=== PATIENT | female | born 1985 | race Caucasian/White ===

== ENCOUNTER 2018-05-02 08:28 | Emergency (ER) | payer BC, MEDICAID ==
[~2018-05-02] VITALS: Ht 154.9 cm; Wt 59.0 kg
[2018-05-02 08:36] VITALS: BP_SYST 97
--- NOTE | 2018-05-02 08:36 | NUR ---
Patient to ER bed 4 to gown for evaluation. Side rails up. Report given to Kenney.
--- NOTE | 2018-05-02 08:53 | NUR ---
Report switched to Fred.
--- NOTE | 2018-05-02 08:59 | NUR ---
Patient reports scant vaginal bleeding since last night. She has mild pelvic cramping which has been ongoing since the begening of her .
[2018-05-02 09:25] LABS: BASOPHILS # (AUTO) 0.1 K/uL (0.0-0.2); BASOPHILS % (AUTO) 1.1 % (0.0-2.0); EOSINOPHILS # (AUTO) 0.1 K/uL (0.0-0.4); EOSINOPHILS % (AUTO) 0.9 % (0.0-4.0); HEMATOCRIT 37.4 % (36-48); HEMOGLOBIN 12.8 g/dL (12.0-16.0); LYMPHOCYTES % (AUTO) 32.8 % (20.5-51.5); MEAN CORPUSCULAR HEMOGLOBIN 30 pg (27-31); MEAN CORPUSCULAR HGB CONC 34 % (32-36); MEAN CORPUSCULAR VOLUME 87 fL (79.0-98.0); MONOCYTES # (AUTO) 0.4 K/uL (0.0-1.0); MONOCYTES % (AUTO) 5.9 % (1.7-9.3); NEUTROPHILS # (AUTO) 3.5 K/uL (1.8-7.7); NEUTROPHILS % (AUTO) 59.3 % (40.0-70.0); PLATELET COUNT (AUTO) 234 K/uL (130-430); RED BLOOD CELL COUNT(AUTO) 4.31 MIL/uL (4.2-6.2); RED CELL DISTRIBUTION WIDTH 13.2 % (9.0-15.0); WHITE BLOOD COUNT (AUTO) 6.1 K/uL (4.8-10.8)
--- NOTE | 2018-05-02 10:09 | NUR ---
Pt on stable condiition, VS WNL
--- NOTE | 2018-05-02 10:35 | NUR ---
Patient given written and verbal discharge instructions and verbalizes understanding. ER MD discussed with patient the results and treatment provided. Patient in stable condition. ID arm band removed. No Rx given. Patient educated on pain management and to follow up with PMD. Pain Scale 0. Opportunity for questions provided and answered.
[2018-05-02 10:37] VITALS: BP_SYST 100
== END 2018-05-02 10:37 | disposition home or self-care (01) ==
LOC: SED 08:28
DX: O20.0 Threatened abortion (principal); R03.0 Elevated blood-pressure reading, without diagnosis of hypertension; Z3A.01 Less than 8 weeks gestation of pregnancy; Z98.84 Bariatric surgery status
CPT/HCPCS: 36415; 76801; 76817; 81025; 84702-TC; 85025; 86900; 86901; 99285

== ENCOUNTER 2018-12-08 11:05 | Inpatient (IN) | payer BC, MEDICAID ==
[~2018-12-08] VITALS: Ht 154.9 cm; Wt 72.1 kg
[2018-12-08] MEDS ORDERED: LR 1,000 ML IV ONE (11:43)
[2018-12-08] MEDS ORDERED: LR 1,000 ML IV SCH (11:43)
[2018-12-08] MEDS ORDERED: OXYTOCIN/0.9 % SODIUM CHLORIDE 1,000 ML IV SCH (11:43)
[2018-12-08] MEDS ORDERED: NALBUPHINE HCL 10 MG/ML AMP IVP PRN (11:45)
[2018-12-08 12:11] LABS: BASOPHILS % (AUTO) 0.4 % (0.0-2.0); EOSINOPHILS # (AUTO) 0.1 K/uL (0.0-0.4); EOSINOPHILS % (AUTO) 0.6 % (0.0-4.0); HEMATOCRIT 34.9 % (36-48); HEMOGLOBIN 11.7 g/dL (12.0-16.0); LYMPHOCYTES # (AUTO) 1.7 K/uL (1.0-5.5); LYMPHOCYTES % (AUTO) 16.3 % (20.5-51.5); MEAN CORPUSCULAR HEMOGLOBIN 30 pg (27-31); MEAN CORPUSCULAR HGB CONC 33 % (32-36); MEAN CORPUSCULAR VOLUME 90 fL (79.0-98.0); MONOCYTES # (AUTO) 0.7 K/uL (0.0-1.0); MONOCYTES % (AUTO) 6.8 % (1.7-9.3); NEUTROPHILS # (AUTO) 7.8 K/uL (1.8-7.7); NEUTROPHILS % (AUTO) 75.9 % (40.0-70.0); PLATELET COUNT (AUTO) 234 K/uL (130-430); RED CELL DISTRIBUTION WIDTH 13.1 % (9.0-15.0); WHITE BLOOD COUNT (AUTO) 10.3 K/uL (4.8-10.8)
[2018-12-08] MEDS ORDERED: ROPIVACAINE 0.2% 100 ML ONE (12:15)
[2018-12-08] MEDS ORDERED: fentaNYL CITRATE/PF 100 MCG/2 ML AMP ONE ×2 (12:15→12:16)
[2018-12-08] MEDS ORDERED: LR 500 ML IV ONE (13:16)
[2018-12-08] MEDS ORDERED: ePHEDrine sulfate 50 MG/ML VIAL IVP PRN (13:30)
[2018-12-08] MEDS ORDERED: fentaNYL CITRATE/PF 100 MCG/2 ML AMP EP ONE (13:30)
[2018-12-08] MEDS ORDERED: FENT2mCg/mL-ROPIVA0.2%/NS EPID 150 ML EP SCH (13:30)
[2018-12-08] MEDS ORDERED: OXYTOCIN/0.9 % SODIUM CHLORIDE 1,000 ML IV ONE (20:03)
[2018-12-08] MEDS ORDERED: WITCH HAZEL LEAF 1 MED.PAD MED.PAD TP PRN (20:15)
[2018-12-08] MEDS ORDERED: DOCUSATE SODIUM 100 MG CAPSULE PO PRN (20:15)
[2018-12-08] MEDS ORDERED: SENNOSIDES/DOCUSATE SODIUM 1 TAB TABLET(SENOKOT-S) PO PRN (20:15)
[2018-12-08] MEDS ORDERED: LANOLIN 7 GM OINT. TP PRN (20:15)
[2018-12-08] MEDS ORDERED: DERMOPLAST SPRAY TP PRN (20:15)
[2018-12-08] MEDS ORDERED: METHYLERGONOVINE MALEATE 0.2 MG TABLET PO PRN (20:15)
[2018-12-08] MEDS ORDERED: TEMAZEPAM 15 MG CAPSULE PO PRN (21:00)
[2018-12-09] MEDS: IBUPROFEN 600 MG TABLET PO SCH ×4 (05:54→17:58)
[2018-12-10] MEDS: IBUPROFEN 600 MG TABLET PO SCH ×2 (01:18→05:51)
[2018-12-10] MEDS ORDERED: OXYTOCIN/0.9 % SODIUM CHLORIDE 20 UNITS/1,000 ML BAG IV ONE (08:30)
[2018-12-10] MEDS ORDERED: ROPIVACAINE 40 MG/20 ML AMP EP ONE (08:34)
[2018-12-10] MEDS ORDERED: MINERAL OIL 30 ML UDC PO ONE (08:35)
[2018-12-10] MEDS ORDERED: LIDOCAINE PF 1% 30ML(POUR BTL) INJ ONE (08:35)
== END 2018-12-10 11:30 | disposition home or self-care (01) | DRG 807 ==
LOC: SPU 11:05
PROVIDERS: ADMIT Specialist; ATTEND Specialist
PROC: 10E0XZZ Delivery of Products of Conception, External Approach (ICD-10-PCS; principal; 2018-12-08)
PROC: 3E0R3BZ Introduction of Anesthetic Agent into Spinal Canal, Percutaneous Approach (ICD-10-PCS; 2018-12-08)
PROC: 00HU33Z Insertion of Infusion Device into Spinal Canal, Percutaneous Approach (ICD-10-PCS; 2018-12-08)
DX: O32.6XX0 Maternal care for compound presentation, not applicable or unspecified (principal); Z37.0 Single live birth; Z3A.38 38 weeks gestation of pregnancy; Z87.891 Personal history of nicotine dependence
CPT/HCPCS: 36415; 85018-TC; 85025; 86592; 86886; 86900; 86901; J2001; J2590; J2795; J3010

== ENCOUNTER 2019-01-16 13:45 | Emergency (ER) | payer BC, MEDICAID ==
--- NOTE | 2019-01-16 14:16 | NUR ---
Pt called from waiting room, no answer
--- NOTE | 2019-01-16 14:20 | NUR ---
Patient left without being seen.
== END 2019-01-16 14:20 | disposition left against medical advice (07) ==
LOC: SED 13:45
DX: E86.0 Dehydration (principal); Z53.21 Procedure and treatment not carried out due to patient leaving prior to being seen by health care provider
CPT/HCPCS: 99281